=== PATIENT | male | born 1980 | race Caucasian/White ===

== ENCOUNTER → 2018-09-09 | Outpatient (CLI) | payer SELFPAY ==
--- NOTE | 2018-09-09 16:13 | RAD ---
EXAM DESCRIPTION: Ankle,Right 2 Views CLINICAL HISTORY: PAIN IN UNSPECIFIED ANKLE AND JOINTS OF UNSPECIFIED FOOT RIGHT COMPARISON: None. TECHNIQUE: 3 views right FINDINGS: An ankle joint effusion is observed. 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 The ankle mortise is intact. No fracturing is detected. IMPRESSION: Exam demonstrates evidence of an ankle joint effusion. No fracture is detected. Electronically signed by: Ye Thao MD 09/09/2018 4:11 PM CDT
== END ==
LOC: LAB.O 08:29
PROVIDERS: ATTEND Nurse Practitioner Family
DX: M25.579 Pain in unspecified ankle and joints of unspecified foot (principal)